=== PATIENT | male | born 1970 | race Caucasian/White ===

== ENCOUNTER 2024-12-05 20:16 | Emergency (ER) | payer OTHER ==
[~2024-12-05] VITALS: Ht 182.9 cm; Wt 100.0 kg
[2024-12-05 20:28] VITALS: BP 120/84; PULSE 89; RESP 18; TEMP 36.7; O2SAT 98
== END 2024-12-05 23:00 | disposition left against medical advice (07) ==
LOC: ER 20:16
DX: M79.10 Myalgia, unspecified site (principal); Z53.21 Procedure and treatment not carried out due to patient leaving prior to being seen by health care provider